=== PATIENT | female | born 1980 | race Caucasian/White ===

== ENCOUNTER 2019-03-04 14:08 | Observation (INO) | payer OTHER ==
[~2019-03-04] VITALS: Ht 152.4 cm; Wt 77.8 kg
[~2019-03-04 14:08] MED LIST: ACET500C5 PO; IBUP-1542 PO; ONDA4TAB8 PO
[2019-03-04 14:20] VITALS: Ht 152.4 cm; Wt 77.8 kg
--- NOTE | 2019-03-04 16:24 | ERD ---
ER Documentation Chief Complaint Chief Complaint sent for H/H 5.0/16.4 HPI The patient is a 38-year-old female, presenting to the ER because of abnormal hemoglobin 5 and low hematocrit at 16.4 obtained 3 days ago, sent to the ER by h er physician. She complains of vaginal spotting for the last 3 weeks, complains of generalized weakness but denies syncope, near syncope, facial pain, neck pain, chest pain, abdominal pain, vomiting, dysuria, diarrhea. She does not smoke nor drink Past medical history: Hypertension Past surgical history: in September 2018 ROS All systems reviewed and are negative except as per history of present illness. Medications Home Meds Reported Medications Nifedipine* (Nifedipine ER*) 60 Mg Tablet.sa, 60 MG PO DAILY, TAB.SA 03/04/19 Labetalol Hcl* (Labetalol Hcl*) 200 Mg Tablet, 200 MG PO BID, TAB 03/04/19 Discontinued Scripts Ondansetron Hcl* (Zofran*) 4 Mg Tablet, 4 MG PO Q6H for NAUSEA AND/OR VOMITING, #30 TAB Prov:MARIA TERESA JADE C 11/21/15 Ibuprofen* (Ibuprofen*) 600 Mg Tablet, 600 MG PO Q6 for 7 Days, TAB Prov:YASMANYPRIMITIVOMARIA TERESA C 11/21/15 Acetaminophen* (Tylophen*) 500 Mg Capsule, 2 CAP PO Q8H PRN for PAIN AND OR ELEVATED TEMP, #20 CAP Prov:YASMANY,MARIA TERESA C 11/21/15 Allergies Allergies: Coded Allergies: No Known Allergy (Verified , 03/04/19) PMhx/Soc History of Surgery: Yes (COSMETIC) Anesthesia Reaction: No Hx Neurological Disorder: No Hx Respiratory Disorders: No Hx Cardiac Disorders: Yes (htn) Hx Psychiatric Problems: No Hx Miscellaneous Medical Probl: No Hx Alcohol Use: No Hx Substance Use: No Hx Tobacco Use: Yes Physical Exam Vitals Vital Signs Date Temp Pulse Resp B/P (MAP) Pulse Ox O2 O2 Flow FiO2 Time Delivery Rate 03/04/19 Nasal 2 16:41 Cannula 03/04/19 98.8 84 18 146/93 99 14:20 (110) Physical Exam Const: No acute distress. Pale Head: Atraumatic. Eyes: Normal Conjunctiva. ENT: Normal External Ears, Nose and Mouth. Neck: Full range of motion. No meningismus. Resp: Clear to auscultation bilaterally. Cardio: Regular rate and rhythm. Abd: Soft, non distended, normal bowel sounds, non tender. Skin: No petechiae or rashes. Back: No midline or flank tenderness. Ext: No cyanosis, or edema. Neur: Awake and alert. No focal deficit Psych: Normal Mood and Affect. Result Diagram: 03/04/19 1636 03/04/19 1636 Results 24 hrs Laboratory Tests Test 03/04/19 16:36 03/04/19 16:47 03/04/19 16:48 White Blood Count 9.5 10^3/ul Red Blood Count 2.23 10^6/ul Hemoglobin 5.2 g/dl Hematocrit 17.1 % Mean Corpuscular Volume 76.7 fl Mean Corpuscular Hemoglobin 23.3 pg Mean Corpuscular 30.4 g/dl Hemoglobin Concent Red Cell Distribution Width 17.3 % Platelet Count 422 10^3/UL Mean Platelet Volume 9.9 fl Immature Granulocytes % 0.200 % Neutrophils % % Segmented Neutrophils % (Manual) 77 % Lymphocytes % % Lymphocytes % (Manual) 19 % Monocytes % % Monocytes % (Manual) 1 % Eosinophils % % Eosinophils % (Manual) 2 % Basophils % % Basophils % (Manual) 1 % Nucleated Red Blood Cells % 1 % Immature Granulocytes # 0.020 10^3/ul Neutrophils # 10^3/ul Lymphocytes (Manual) 1.8 10^3/ul Lymphocytes # 10^3/ul Monocytes # 10^3/ul Monocytes # (Manual) 0.0 10^3/ul Eosinophils # 10^3/ul Basophils # 10^3/ul Basophils # (Manual) 0.0 10^3/ul Nucleated Red Blood Cells # 10^3/ul Platelet Estimate NORMAL Polychromasia 1+ Hypochromasia 2+ Poikilocytosis 1+ Anisocytosis 1+ Microcytosis 1+ Ovalocytes 1+ Prothrombin Time 14.7 Sec Prothrombin Time Ratio 1.1 INR International Normalized Ratio 1.14 Activated Partial Thromboplast 26.9 Sec Time Sodium Level 140 mmol/L Potassium Level 3.3 mmol/L Chloride Level 107 mmol/L Carbon Dioxide Level 25 mmol/L Anion Gap 8 Blood Urea Nitrogen 12 mg/dl Creatinine 0.67 mg/dl Est Glomerular Filtrat Rate mL/min > 60 mL/min Glucose Level 99 mg/dl Calcium Level 8.2 mg/dl Total Bilirubin 0.3 mg/dl Direct Bilirubin 0.00 mg/dl Indirect Bilirubin 0.3 mg/dl Aspartate Amino Transf (AST/SGOT) 36 IU/L Alanine 19 IU/L Aminotransferase (ALT/SGPT) Alkaline Phosphatase 76 IU/L Total Protein 7.1 g/dl Albumin 3.9 g/dl Globulin 3.20 g/dl Albumin/Globulin Ratio 1.21 Bedside Urine pH (LAB) 5.5 Bedside Urine Protein (LAB) Trace Bedside Urine Glucose (UA) Negative Bedside Urine Ketones (LAB) Negative Bedside Urine Blood 3+ Bedside Urine Nitrite (LAB) Negative Bedside Urine Leukocyte Esterase 1+ (L POC Beta HCG, Qualitative NEGATIVE Current Medications Medications Dose Sig/Janeen Start Time Status Last (Trade) Ordered Route PRN Stop Time Admin Dose Reason Admin Potassium 40 meq ONCE STAT 03/04/19 DC 03/04/19 Chloride PO 17: 17:40 (Klor-Con 20) 03/04/19 17:23 Ceftriaxone 50 ml @ ONCE ONCE 03/04/19 DC 03/04/19 Sodium 100 mls/hr IVPB 17:30 17:39 03/04/19 17:59 Procedures/MDM EKG: Read by emergency physician Rate/Rhythm: Normal Sinus Rhythm 79 beats/min QRS, ST, T-waves: No ST elevation, no T inversion Impression: Normal EKG [place] [id number] Radiology Main Line: [phone] DIAGNOSTIC IMAGING REPORT Patient: ERNESTINA CURTIS : 1980 Age: 38 Sex: F [id number] DOS: 03/04/19 [facility] Ordering MD: DAVE ALMENDAREZ MD Location: E/R Room/Bed: PROCEDURE: US Pelvis CLINICAL INDICATION: Vaginal bleeding. TECHNIQUE: Transabdominal and transvaginal sonographic evaluation of the pelvis was performed. COMPARISON: Pelvic sonogram dated 02/09/2014. FINDINGS: Uterus is retroverted and measures 7.8 x 5.3 x 5.3 cm. Endometrium measures 14 mm in thickness. No uterine masses are seen. Right ovary measures 2.5 x 1.3 x 1.8 cm. Left ovary measures 3.3 x 2.1 x 3.5 cm. There is a 3 cm left ovarian cyst. Normal vascular waveforms were sampled from both ovaries. There is no free pelvic fluid. IMPRESSION: 1. Unremarkable uterus and right ovary. 2. A 3 cm left ovarian cyst. RPTAT: DD Physician Angely Date Time Electronically viewed and signed by Terry Woo Physician on 03/04/2019 17:46 RM/ CC: DAVE ALMENDAREZ MD [id number] MEDICAL MAKING DECISION: The patient is a 38-year-old female, presenting with acute symptomatic anemia due to acute vaginal bleeding, acute hypokalemia, acute cystitis. She was treated with 3 unit of packed red blood cell, potassium chloride 40 mEq p.o. for acute hypokalemia, urine culture is submitted, Rocephin 1 g IV for acute cystitis The differential diagnoses considered include but are not limited to dysfunctional uterine bleeding, cystitis, pyelonephritis Departure Diagnosis: Primary Impression: Symptomatic anemia Additional Impressions: Hypokalemia UTI (urinary tract infection) Dysfunctional uterine bleeding Condition: Stable Comments I discussed the findings with the patient. I discussed the patient with Dr Mccoy at 6:30pm , who was made aware of the lab, the treatment, the patient condition. The patient is admitted to [facility] Disclaimer: Inadvertent spelling and grammatical errors are likely due to EHR/dictation software use and do not reflect on the overall quality of patient care. Also, please note that the electronic time recorded on this note does not necessarily reflect the actual time of the patient encounter. DAVE ALMENDAREZ MD Mar 04, 2019 16:24
[2019-03-04] MEDS ORDERED: POTASSIUM CHLORIDE (SR) 20 MEQ TAB PO STA (17:19)
[2019-03-04] MEDS ORDERED: CEFTRIAXONE 1 GM/50 ML (PMX) 50 ML IVPB ONE (17:30)
[2019-03-04] MEDS ORDERED: LABE200T25 PO (17:42)
[2019-03-04] MEDS ORDERED: NIFE60TA18 PO (17:44)
[2019-03-04] MEDS ORDERED: NACL 0.9% 3 ML SYG IV SCH (19:00)
[2019-03-04] MEDS ORDERED: DOCUSATE SODIUM 100 MG CAP PO PRN (19:00)
[2019-03-04] MEDS ORDERED: ONDANSETRON 4 MG TAB PO PRN (19:00)
[2019-03-04 23:13] VITALS: BP 141/82; PULSE 71; RESP 20
[2019-03-04] MEDS: FAMOTIDINE 20 MG TAB PO SCH (23:38)
[2019-03-04] MEDS: LABETALOL 200 MG TAB PO SCH (23:38)
[2019-03-04] MEDS: ACETAMINOPHEN 325 MG TAB PO PRN (23:39)
[2019-03-05] MEDS ORDERED: DIPHENHYDRAMINE 50 MG INJ IV STA (00:12)
[2019-03-05 02:04] VITALS: BP 147/71; PULSE 74; RESP 19
[2019-03-05 02:24] VITALS: BP 106/63; PULSE 76; RESP 18
[2019-03-05 07:57] VITALS: BP 107/63; PULSE 74; RESP 16
[2019-03-05] MEDS: FAMOTIDINE 20 MG TAB PO SCH (09:00)
[2019-03-05] MEDS ORDERED: NIFEdipine (XL) 60 MG TAB PO SCH (09:00)
[2019-03-05] MEDS: LABETALOL 200 MG TAB PO SCH (09:00)
[2019-03-05] MEDS ORDERED: DIPHENHYDRAMINE 50 MG CAP PO PRN (09:44)
[2019-03-05] MEDS: ACETAMINOPHEN 325 MG TAB PO PRN (09:50)
--- NOTE | 2019-03-05 10:45 | PDOCDIS ---
Discharge Instructions CONDITION [id number] Patient Condition: [id number] Good HOME CARE INSTRUCTIONS: [id number] Diet Instructions: [id number] FOLLOW UP/APPOINTMENTS Follow-up Plan pcp 1 week Gynecology SAMAN DAVILA MD Mar 05, 2019 10:45
[2019-03-05 11:37] VITALS: BP 129/71; PULSE 70; RESP 19
--- NOTE | 2019-03-05 12:54 | HP ---
DATE OF ADMISSION: 03/04/2019 CHIEF COMPLAINT: Generalized weakness. HISTORY OF PRESENT ILLNESS: A 38-year-old female who was referred to Emergency Room for abnormal hem oglobin of 5 as outpatient. Patient reports feeling tired for the last several days prior to admissi on. She has noted vaginal spotting for the last 3 to 4 weeks prior to admission. The patient underw ent a in 09/2018. Initial evaluation revealed hemoglobin of 5.2 with MCV of 76.7. The pat ient denies hematemesis. No bright red blood per rectum or melena. A pelvic ultrasound showed unrem arkable uterus and a 3 cm left ovarian cyst. The patient received 2 units of packed RBC following ad mission. She developed pruritus. Repeat hemoglobin was 7.7. Third unit of packed RBC was pending. PAST MEDICAL HISTORY: Hypertension. MEDICATIONS PRIOR TO ADMISSION: 1. Labetalol 200 mg b.i.d. 2. Nifedipine 60 mg daily. SOCIAL HISTORY: Patient lives at home. She denies tobacco or alcohol use. PHYSICAL EXAMINATION: GENERAL: Well-developed, well-nourished female who is in no apparent distress. She reports feeling much better. VITAL SIGNS: Stable. She is afebrile. HEENT: Extraocular muscles intact. Pupils equal and reactive to light bilaterally. Sclerae are ani cteric. Oropharynx is clear and moist. NECK: Supple, no JVD, no carotid bruits. LUNGS: Clear to auscultation bilaterally. CARDIAC: Regular rate and rhythm. No murmurs or gallops. ABDOMEN: Soft, nontender, nondistended, normoactive bowel sounds. EXTREMITIES: No clubbing, cyanosis, or edema. NEUROLOGICAL: Nonfocal. LABORATORY DATA: WBC 8.4, last hemoglobin was 7.7, platelet count 373,000. Basic metabolic panel wi thin normal limits. Thyroid function test is normal. Beta hCG was negative. Hemoglobin A1c was nor mal at 5.7. ASSESSMENT: A 38-year-old female with: 1. 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 2. Dysfunctional urine bleed. 3. Hypertension. PLAN: 1. Place in med/surg observation. 2. Transfuse additional unit of packed RBC. 3. Continue oral contraceptives at home. Follow up with PCP and gynecology as soon as possible. Dictated By: SAMAN FRANKS/MARIE Conf#: [id number] DID#: [id number] CC: KOSTAS RAMOS MD;*End*
[2019-03-05 13:49] VITALS: BP 119/80; PULSE 76; RESP 16
== END 2019-03-05 16:55 | disposition home or self-care (01) ==
LOC: E/R 14:08 → PP2 18:34
PROVIDERS: ADMIT Internal Medicine; ATTEND Internal Medicine
DX: N93.8 Other specified abnormal uterine and vaginal bleeding (principal); D50.0 Iron deficiency anemia secondary to blood loss (chronic); I10 Essential (primary) hypertension
CPT/HCPCS: 36415; 36430; 76830; 76856; 80048; 80053; 81003; 81025; 83036; 83540; 84436; 84479; 85025; 85610; 85730; 86850; 86900; 86901; 86920; 87086; 93005; 96374; J0696; J1200; P9016; Z7500; Z7502; Z7610; G0378